=== PATIENT | male | born 1945 | race Caucasian/White ===

== ENCOUNTER 2017-07-19 16:26 | Outpatient (CLI) | payer MEDICARE, OTHER | END 2017-07-19 23:59 | disposition short-term general hospital (02) | LOC: EMS 16:26 | PROVIDERS: ATTEND Surgery | DX: R11.2 Nausea with vomiting, unspecified (principal) | CPT/HCPCS: A0425; A0427; A0888 ==

== ENCOUNTER 2021-05-22 13:46 | Outpatient (CLI) | payer MEDICARE, OTHER | END 2021-05-22 23:59 | disposition short-term general hospital (02) | LOC: EMS 13:46 | DX: R55 Syncope and collapse (principal); R00.1 Bradycardia, unspecified | CPT/HCPCS: A0425; A0427 ==